=== PATIENT | male | born 1950 | race Caucasian/White ===

== ENCOUNTER 2017-04-03 11:38 | Emergency (ER) | payer OTHER, BC ==
[2017-04-03 12:57] LABS: BASOPHIL % 0.5 % (0-2); PLATELET COUNT 203 x10^3mcL (130-400); RED CELL DISTRIBUTION WIDTH 12.8 % (11.5-14.5)
[2017-04-03 13:01] LABS: CALCIUM 8.3 mg/dL (8.5-10.1); CARBON DIOXIDE 25.7 mmol/L (21-32); CHLORIDE SERUM 110 mmol/L (98-107); GFR1 > 60 mL/min; GLUCOSE SERUM 85 mg/dL (74-106); POTASSIUM SERUM 4.1 mmol/L (3.5-5.1); SODIUM SERUM 144 mmol/L (136-145)
[2017-04-03 13:09] LABS: ALBUMIN 3.6 g/dL (3.4-5.0); ALKALINE PHOSPHATASE 51 U/L (46-116); ALT/SGPT 31 U/L (16-63); AST/SGOT 19 U/L (15-37); BILIRUBIN TOTAL 0.78 mg/dL (0.20-1.00); TOTAL PROTEIN, SERUM 6.8 g/dL (6.4-8.2)
[2017-04-03 15:21] VITALS: BP 157/74
== END 2017-04-03 15:21 | disposition home or self-care (01) ==
LOC: ED 11:38
PROVIDERS: Emergency Medicine
DX: R07.89 Other chest pain (principal); I10 Essential (primary) hypertension
CPT/HCPCS: 36415; Q0092

== ENCOUNTER → 2018-04-18 | Outpatient (CLI) | payer OTHER, BC | END | disposition home or self-care (01) | LOC: CT 08:02 | PROC: BW21ZZZ Computerized Tomography (CT Scan) of Abdomen and Pelvis (ICD-10-PCS; principal; 2018-04-18) | DX: R10.12 Left upper quadrant pain (principal) ==

== ENCOUNTER → 2018-11-17 | Outpatient (CLI) | payer OTHER, BC | END | disposition home or self-care (01) | LOC: RD 07:51 | DX: M25.511 Pain in right shoulder (principal) ==

== ENCOUNTER → 2019-03-10 | Outpatient (CLI) | payer OTHER, BC | END | disposition home or self-care (01) | LOC: CT 03-09 10:12 | PROC: BW211ZZ Computerized Tomography (CT Scan) of Abdomen and Pelvis using Low Osmolar Contrast (ICD-10-PCS; principal; 2019-03-10) | DX: R10.32 Left lower quadrant pain (principal); R50.9 Fever, unspecified | CPT/HCPCS: Q9967 ==

== ENCOUNTER → 2019-03-20 | Outpatient (CLI) | payer OTHER, BC | END | disposition home or self-care (01) | LOC: RD 09:31 | DX: J18.1 Lobar pneumonia, unspecified organism (principal) ==

== ENCOUNTER 2020-02-21 09:09 | Emergency (ER) | payer OTHER, BC ==
[~2020-02-21] VITALS: Ht 182.9 cm; Wt 90.7 kg
[2020-02-21 09:20] VITALS: Ht 182.9 cm; Wt 90.7 kg
[2020-02-21 10:01] LABS: BASOPHIL % 0.4 % (0-2); PLATELET COUNT 184 x10^3mcL (130-400); RED CELL DISTRIBUTION WIDTH 12.7 % (11.5-14.5)
[2020-02-21 10:19] LABS: CALCIUM 8.3 mg/dL (8.5-10.1); CARBON DIOXIDE 27.7 mmol/L (21-32); CHLORIDE SERUM 107 mmol/L (98-107); GFR1 > 60 mL/min; GLUCOSE SERUM 95 mg/dL (74-106); POTASSIUM SERUM 3.7 mmol/L (3.5-5.1); SODIUM SERUM 143 mmol/L (136-145)
[2020-02-21 10:24] LABS: ALBUMIN 3.6 g/dL (3.4-5.0); ALKALINE PHOSPHATASE 60 U/L (46-116); ALT/SGPT 36 U/L (16-63); AST/SGOT 19 U/L (15-37); BILIRUBIN TOTAL 0.54 mg/dL (0.20-1.00); TOTAL PROTEIN, SERUM 6.7 g/dL (6.4-8.2)
[2020-02-21 10:29] LABS: CHOLESTEROL 221 mg/dL (<200)
[2020-02-21] MEDS ORDERED: ZESTRIL10 MG PO (12:55)
[2020-02-21] MEDS ORDERED: ACID REDUCER20 MG PO (12:56)
[2020-02-21] MEDS ORDERED: MICROZIDE12.5 MG PO (12:56)
[2020-02-21 17:52] LABS: AMPHETAMINE QUAL UR NONE DETECTED (See below)
[2020-02-21 17:55] LABS: MAGNESIUM 2.1 mg/dL (1.8-2.4); PHOSPHOROUS 3.1 mg/dL (2.5-4.9)
[2020-02-21 17:59] LABS: CHOLESTEROL/HDL RATIO 5.3
[2020-02-21 18:11] VITALS: BP 154/70
== END 2020-02-21 18:13 | disposition left against medical advice (07) ==
LOC: ED 09:09 → DU 13:41 → ED 18:13
PROVIDERS: Family Medicine; Specialist
DX: G45.9 Transient cerebral ischemic attack, unspecified (principal); I10 Essential (primary) hypertension
CPT/HCPCS: G0480; J7030; Q0092